=== PATIENT | male | born 1950 | race Caucasian/White ===

== ENCOUNTER 2021-10-02 14:49 | Inpatient (IN) ==
[2021-10-02] MEDS ORDERED: methylPREDNISolone 125 MG/2 ML VIAL IVP ONE (15:11)
[2021-10-02] MEDS ORDERED: 0.9 % Sodium Chloride 1,000 ML IVC ONE (15:11)
[2021-10-02] MEDS ORDERED: Ipratropium/Albuterol Neb 3 ML IH ONE (15:11)
[2021-10-02 15:57] LABS: Basophils % 0.2 %; Eosinophils % 0.1 %; Immature Granulocytes % 2.2 % (0-4); Red Cell Distribution Width 14.9 % (11.5-14.5); Segmented Neutrophils % 83.6 %
[2021-10-02 15:59] LABS: Hematocrit 38.9 % (37.5-50.1); Hemoglobin 12.2 g/dL (12.9-16.9); Immature Platelets 15.9 % (1.1-6.1); Lymphocytes # 0.7 K/mcL (0.6-4.6); Lymphocytes % 3.8 %; Mean Corpuscular HGB Conc 31.4 g/dL (31.6-35.5); Mean Corpuscular Hemoglobin 26.7 pg (28.0-33.3); Mean Corpuscular Volume 85.1 fL (83.0-100.0); Mean Platelet Volume 13.7 fL (9.4-12.4); Monocytes # 1.8 K/mcL (0.0-1.3); Monocytes % 10.1 %; Platelet Count 222 K/mcL (140-400); Red Blood Count 4.57 M/mcL (4.19-5.50)
[2021-10-02 16:05] LABS: INR 1.2; Neutrophils # 15.1 K/mcL (1.6-8.9); Prothrombin Time 13.9 Seconds (9.4-12.1)
[2021-10-02 16:08] LABS: Activated Partial Thrombo Time 32.5 Seconds (26.0-36.0)
[2021-10-02 16:12] LABS: ABG Base Excess -6 mEq/L (-2 to 3); ABG HCO3 18 mEq/L (21-27); ABG Oxygen Saturation 89 % (95-98); ABG PCO2 31 mmHg (35-45); ABG PH 7.38 pH Units (7.32-7.45); ABG PO2 57 mmHg (85-104); ABG TCO2 19 mEq/L (20-26)
[2021-10-02 16:21] LABS: Large Platelets Present (Not Present); Smudge Cells Present (Not Present)
[2021-10-02 16:24] LABS: Troponin I 0.04 ng/mL (< 0.04)
[2021-10-02 16:36] LABS: Albumin 3.7 g/dL (3.5-5.7); Albumin/Globulin Ratio 0.9 (1.1-2.2); Bilirubin,Direct 0.1 mg/dL (0.0-0.2); Bilirubin,Indirect 0.2 mg/dL (0.0-1.0); Bilirubin,Total 0.3 mg/dL (0.3-1.0); Calcium 9.1 mg/dL (8.6-10.3); Globulin 4.3 g/dL (2.4-3.5); Potassium 5.1 mEq/L (3.5-5.1)
[2021-10-02] MEDS ORDERED: cefTRIAXone 1,000 MG in 0.9 % Sodium Chloride Mini Bag 100 ML IVPB ONE (16:36)
[2021-10-02] MEDS ORDERED: *HR* Heparin 5,000 UNIT/ML VIAL IVP ONE (16:50)
[2021-10-02] MEDS ORDERED: *HR* Heparin 5,000 UNIT/ML VIAL IVP PRN ×2 (16:50)
[2021-10-02 17:27] LABS: Hematocrit 38.4 % (37.5-50.1); Mean Corpuscular HGB Conc 31.3 g/dL (31.6-35.5); Mean Corpuscular Hemoglobin 26.6 pg (28.0-33.3); Mean Corpuscular Volume 85.1 fL (83.0-100.0); Mean Platelet Volume 13.3 fL (9.4-12.4); Red Blood Count 4.51 M/mcL (4.19-5.50); Red Cell Distribution Width 14.9 % (11.5-14.5); White Blood Count 17.2 K/mcL (4.3-11.1)
[2021-10-02 17:34] LABS: INR 1.2; Prothrombin Time 13.9 Seconds (9.4-12.1)
[2021-10-02 17:36] LABS: Heparin anti-factor XA UFH < 0.04 IU/mL (0.30-0.70)
[2021-10-02] MEDS: Heparin 25,000UNIT/250ML 1/2NS 25,000 UNIT/250 ML IV.SOLN IVC SCH (18:08)
[2021-10-02] MEDS ORDERED: Naloxone 0.4 MG/ML INJ IVP PRN (18:47)
[2021-10-02] MEDS ORDERED: Melatonin 3 MG TABLET PO PRN (18:47)
[2021-10-02] MEDS: Ipratropium 1 PUFF INHALER IH SCH ×2 (19:41→20:02)
[2021-10-02] MEDS: Dexamethasone Sodium Phos/PF 10 MG/ML VIAL IVP SCH (19:45)
[2021-10-02 21:25] LABS: Adenovirus Not Detected (Not Detect); Coronavirus 229E Not Detected (Not Detect); Coronavirus HKU1 Not Detected (Not Detect); Coronavirus NL63 Not Detected (Not Detect); Coronavirus OC43 Not Detected (Not Detect)
[2021-10-02 21:26] LABS: Bordetella Pertussis Not Detected (Not Detect); Chlamydophila pneumoniae Not Detected (Not Detect); Human Metapneumovirus Not Detected (Not Detect); Human Rhinovirus/Enterovirus Not Detected (Not Detect); Influenza A Subtype 2009 H1 Not Detected (Not Detect); Influenza B Not Detected (Not Detect); Mycoplasma pneumoniae Not Detected (Not Detect); Parainfluenza Virus 1 Not Detected (Not Detect); Parainfluenza Virus 2 Not Detected (Not Detect); Parainfluenza Virus 3 Not Detected (Not Detect); Parainfluenza Virus 4 Not Detected (Not Detect); Respiratory Syncytial Virus Not Detected (Not Detect); SARS-CoV-2 DETECTED (Not Detect)
[2021-10-02 23:21] LABS: Amorphous Sediment,Urine Few per hpf (None-Few); Bilirubin,Urine Negative (Negative); Blood,Urine Trace (Negative); Clarity,Urine Turbid (Clear); Color,Urine Yellow (Yellow); Glucose,Urine (UA) Normal (Normal); Hyaline Casts,Urine Few per lpf (None Seen); Ketones,Urine Trace mg/dL (Negative); Leukocyte Esterase,Urine Negative (Negative); Mucus,Urine Few per lpf (None-Few); Nitrite,Urine Negative (Negative); PH,Urine 5.5 pH Units (5.0-8.0); Protein,Urine 70 mg/dL (Neg-Trace); RBC,Urine 0-3 per hpf (0-3); Specific Gravity,Urine 1.021 (1.010-1.025); Squamous Epithelial Cell,Urine Few per hpf (None-Few); Urobilinogen,Urine Normal (Normal); WBC,Urine 0-3 per hpf (0-3)
[2021-10-02 23:26] LABS: Hematocrit 35.1 % (37.5-50.1); Hemoglobin 11.2 g/dL (12.9-16.9); Mean Corpuscular HGB Conc 31.9 g/dL (31.6-35.5); Mean Corpuscular Hemoglobin 27.1 pg (28.0-33.3); Mean Corpuscular Volume 84.8 fL (83.0-100.0); Platelet Count 203 K/mcL (140-400); Red Blood Count 4.14 M/mcL (4.19-5.50); Red Cell Distribution Width 14.9 % (11.5-14.5); White Blood Count 13.8 K/mcL (4.3-11.1)
[2021-10-02 23:35] LABS: Heparin anti-factor XA UFH 0.91 IU/mL (0.30-0.70)
[2021-10-03 00:50] LABS: C-Reactive Protein > 300 mg/L (Less than 10); Troponin I 0.04 ng/mL (< 0.04)
[2021-10-03] MEDS: Ipratropium 1 PUFF INHALER IH SCH ×4 (04:00→20:27)
[2021-10-03 07:59] LABS: Red Cell Distribution Width 15.2 % (11.5-14.5)
[2021-10-03 08:02] LABS: Hematocrit 35.5 % (37.5-50.1); Hemoglobin 11.2 g/dL (12.9-16.9); Immature Platelets 16.7 % (1.1-6.1); Mean Corpuscular HGB Conc 31.5 g/dL (31.6-35.5); Mean Corpuscular Volume 85.5 fL (83.0-100.0); Mean Platelet Volume 13.3 fL (9.4-12.4); Platelet Count 235 K/mcL (140-400); Red Blood Count 4.15 M/mcL (4.19-5.50); White Blood Count 15.7 K/mcL (4.3-11.1)
[2021-10-03 09:24] LABS: Troponin I 0.03 ng/mL (< 0.04)
[2021-10-03] MEDS: Dexamethasone Sodium Phos/PF 10 MG/ML VIAL IVP SCH (09:39)
[2021-10-03 09:41] LABS: Hypochromasia Present (Not Present); Lymphocytes # 0.3 K/mcL (0.6-4.6); Monocytes # 1.6 K/mcL (0.0-1.3); Neutrophils # 13.8 K/mcL (1.6-8.9); Platelet Estimate Normal (Normal)
[2021-10-03] MEDS ORDERED: 0.9 % Sodium Chloride 1,000 ML IVC SCH (14:15)
[2021-10-03] MEDS: FLUoxetine 20 MG CAPSULE PO SCH (15:26)
[2021-10-03] MEDS: Heparin 25,000UNIT/250ML 1/2NS 25,000 UNIT/250 ML IV.SOLN IVC SCH (17:15)
[2021-10-04 01:52] LABS: Mean Corpuscular Volume 83.5 fL (83.0-100.0)
[2021-10-04 01:54] LABS: Basophils % 0.2 %; Hematocrit 33.4 % (37.5-50.1); Hemoglobin 10.6 g/dL (12.9-16.9); Immature Granulocytes % 1.6 % (0-4); Immature Platelets 14.8 % (1.1-6.1); Lymphocytes # 0.7 K/mcL (0.6-4.6); Lymphocytes % 4.8 %; Mean Corpuscular HGB Conc 31.7 g/dL (31.6-35.5); Mean Corpuscular Hemoglobin 26.5 pg (28.0-33.3); Mean Platelet Volume 13.3 fL (9.4-12.4); Monocytes # 1.5 K/mcL (0.0-1.3); Monocytes % 9.7 %; Neutrophils # 12.8 K/mcL (1.6-8.9); Platelet Count 226 K/mcL (140-400); Red Cell Distribution Width 14.8 % (11.5-14.5); Segmented Neutrophils % 83.7 %; White Blood Count 15.3 K/mcL (4.3-11.1)
[2021-10-04 02:04] LABS: Calcium 8.6 mg/dL (8.6-10.3); Potassium 4.7 mEq/L (3.5-5.1)
[2021-10-04] MEDS: Ipratropium 1 PUFF INHALER IH SCH ×4 (03:33→20:13)
[2021-10-04] MEDS: FLUoxetine 20 MG CAPSULE PO SCH (08:56)
[2021-10-04] MEDS: Dexamethasone Sodium Phos/PF 10 MG/ML VIAL IVP SCH (08:57)
[2021-10-04] MEDS: Acetaminophen 325 MG TABLET PO PRN (16:08)
[2021-10-04] MEDS: Azithromycin 500 MG in 0.9 % Sodium Chloride 250 ML IVPB SCH (20:47)
[2021-10-04] MEDS ORDERED: Melatonin 3 MG TABLET PO SCH (21:00)
[2021-10-05] MEDS: cefTRIAXone 1,000 MG in Water for inj. (sterile) 10 ML IVP SCH ×2 (00:30→09:27)
[2021-10-05 02:07] LABS: Hemoglobin 10.6 g/dL (12.9-16.9); Red Cell Distribution Width 14.7 % (11.5-14.5)
[2021-10-05 02:09] LABS: Basophils % 0.3 %; Hematocrit 32.3 % (37.5-50.1); Immature Granulocytes % 2.7 % (0-4); Immature Platelets 15.1 % (1.1-6.1); Lymphocytes # 0.4 K/mcL (0.6-4.6); Lymphocytes % 3.7 %; Mean Corpuscular HGB Conc 32.8 g/dL (31.6-35.5); Mean Corpuscular Hemoglobin 26.9 pg (28.0-33.3); Mean Platelet Volume 13.2 fL (9.4-12.4); Monocytes # 1.2 K/mcL (0.0-1.3); Monocytes % 10.2 %; Neutrophils # 9.5 K/mcL (1.6-8.9); Platelet Count 239 K/mcL (140-400); Red Blood Count 3.94 M/mcL (4.19-5.50); Segmented Neutrophils % 83.1 %; White Blood Count 11.4 K/mcL (4.3-11.1)
[2021-10-05 02:17] LABS: Fibrinogen 645 mg/dL (169-393)
[2021-10-05 02:20] LABS: D-Dimer 774 ng/mLFEU (0-500)
[2021-10-05 02:23] LABS: BUN/Creatinine Ratio 43 (6-26); Blood Urea Nitrogen 60 mg/dL (8-23); C-Reactive Protein 84 mg/L (Less than 10); Calcium 8.6 mg/dL (8.6-10.3); Carbon Dioxide 22 mEq/L (23-29); Chloride 110 mEq/L (98-107); Glucose 188 mg/dL (70-105); Osmolality,Calculated 316 (280-300); Potassium 4.8 mEq/L (3.5-5.1); Sodium 142 mEq/L (136-145); eGFR For African Americans > 60 (> 60); eGFR For Non-African Americans 51 (> 60)
[2021-10-05 02:43] LABS: Large Platelets Present (Not Present); Platelet Estimate Normal (Normal); Reactive Lymphocytes Present (Not Present)
[2021-10-05] MEDS: Ipratropium 1 PUFF INHALER IH SCH ×4 (04:18→20:08)
[2021-10-05] MEDS: Acetaminophen 325 MG TABLET PO PRN (09:24)
[2021-10-05] MEDS: FLUoxetine 20 MG CAPSULE PO SCH (09:26)
[2021-10-05] MEDS: amLODIPine 5 MG TABLET PO SCH (09:26)
[2021-10-05] MEDS: Dexamethasone Sodium Phos/PF 10 MG/ML VIAL IVP SCH (09:26)
[2021-10-05] MEDS: Ondansetron 4 MG/2 ML VIAL IVP PRN (09:37)
[2021-10-05] MEDS: Benzonatate 100 MG CAPSULE PO PRN (09:38)
[2021-10-05] MEDS: Heparin 25,000UNIT/250ML 1/2NS 25,000 UNIT/250 ML IV.SOLN IVC SCH (13:23)
[2021-10-05] MEDS: Azithromycin 500 MG in 0.9 % Sodium Chloride 250 ML IVPB SCH (19:00)
[2021-10-06 02:18] LABS: Basophils # 0.1 K/mcL (0.0-0.2); Basophils % 0.5 %; Immature Granulocytes % 4.2 % (0-4); Immature Platelets 15.5 % (1.1-6.1); Lymphocytes # 0.5 K/mcL (0.6-4.6); Mean Corpuscular HGB Conc 33.3 g/dL (31.6-35.5); Mean Corpuscular Hemoglobin 27.3 pg (28.0-33.3); Mean Corpuscular Volume 81.9 fL (83.0-100.0); Mean Platelet Volume 13.5 fL (9.4-12.4); Monocytes # 1.3 K/mcL (0.0-1.3); Monocytes % 12.6 %; Platelet Count 237 K/mcL (140-400); Red Blood Count 4.03 M/mcL (4.19-5.50); Red Cell Distribution Width 14.6 % (11.5-14.5); Segmented Neutrophils % 77.7 %; White Blood Count 10.1 K/mcL (4.3-11.1)
[2021-10-06 02:19] LABS: Neutrophils # 7.9 K/mcL (1.6-8.9)
[2021-10-06 02:34] LABS: BUN/Creatinine Ratio 33 (6-26); Blood Urea Nitrogen 43 mg/dL (8-23); Calcium 8.8 mg/dL (8.6-10.3); Carbon Dioxide 25 mEq/L (23-29); Chloride 109 mEq/L (98-107); Glucose 156 mg/dL (70-105); Osmolality,Calculated 308 (280-300); Potassium 4.7 mEq/L (3.5-5.1); Sodium 142 mEq/L (136-145); eGFR For African Americans > 60 (> 60); eGFR For Non-African Americans 54 (> 60)
[2021-10-06 02:41] LABS: Platelet Estimate Normal (Normal)
[2021-10-06] MEDS: Ipratropium 1 PUFF INHALER IH SCH ×4 (04:18→19:58)
[2021-10-06] MEDS: amLODIPine 5 MG TABLET PO SCH (09:15)
[2021-10-06] MEDS: Acetaminophen 325 MG TABLET PO PRN ×2 (09:16→17:59)
[2021-10-06] MEDS: Aspirin Enteric Coated 81 MG Tablet PO SCH (09:17)
[2021-10-06] MEDS: Dexamethasone Sodium Phos/PF 10 MG/ML VIAL IVP SCH (09:17)
[2021-10-06] MEDS: Ondansetron 4 MG/2 ML VIAL IVP PRN (09:17)
[2021-10-06] MEDS: Benzonatate 100 MG CAPSULE PO PRN ×2 (09:17→17:58)
[2021-10-06] MEDS: Cholecalciferol (D-3) 1,000 UNIT (25MCG) TABLET PO SCH (09:17)
[2021-10-06] MEDS: FLUoxetine 20 MG CAPSULE PO SCH (09:17)
[2021-10-06] MEDS: hydrOXYzine pamoate 25 MG CAPSULE PO PRN (09:17)
[2021-10-06] MEDS: lisinopriL 20 MG TABLET PO SCH (09:17)
[2021-10-06] MEDS: cefTRIAXone 1,000 MG in Water for inj. (sterile) 10 ML IVP SCH (09:18)
[2021-10-06 11:20] LABS: Protein/Creatinine Ratio,Urine 0.75 mg/mg (0.00-0.20)
[2021-10-06] MEDS: *HR* Heparin 5,000 UNIT/ML VIAL SQ SCH ×2 (11:25→17:58)
[2021-10-06] MEDS: Azithromycin 500 MG in 0.9 % Sodium Chloride 250 ML IVPB SCH (17:59)
[2021-10-07 02:33] LABS: Mean Corpuscular Volume 82.9 fL (83.0-100.0); Mean Platelet Volume 13.6 fL (9.4-12.4); Red Cell Distribution Width 14.6 % (11.5-14.5)
[2021-10-07 02:35] LABS: Basophils # 0.1 K/mcL (0.0-0.2); Basophils % 0.8 %; Hematocrit 34.4 % (37.5-50.1); Immature Platelets 15.3 % (1.1-6.1); Lymphocytes # 0.5 K/mcL (0.6-4.6); Lymphocytes % 7.5 %; Mean Corpuscular Hemoglobin 26.5 pg (28.0-33.3); Monocytes # 0.6 K/mcL (0.0-1.3); Monocytes % 8.7 %; Neutrophils # 5.6 K/mcL (1.6-8.9); Platelet Count 224 K/mcL (140-400); Red Blood Count 4.15 M/mcL (4.19-5.50); White Blood Count 7.2 K/mcL (4.3-11.1)
[2021-10-07 02:47] LABS: BUN/Creatinine Ratio 36 (6-26); Blood Urea Nitrogen 47 mg/dL (8-23); Calcium 8.9 mg/dL (8.6-10.3); Carbon Dioxide 25 mEq/L (23-29); Chloride 104 mEq/L (98-107); Glucose 184 mg/dL (70-105); Osmolality,Calculated 303 (280-300); Potassium 5.1 mEq/L (3.5-5.1); Sodium 138 mEq/L (136-145); eGFR For African Americans > 60 (> 60); eGFR For Non-African Americans 53 (> 60)
[2021-10-07 03:12] LABS: Large Platelets Present (Not Present); Platelet Estimate Normal (Normal)
[2021-10-07] MEDS: Ipratropium 1 PUFF INHALER IH SCH ×4 (04:00→23:42)
[2021-10-07] MEDS: *HR* Heparin 5,000 UNIT/ML VIAL SQ SCH ×3 (05:22→21:03)
[2021-10-07] MEDS: Aspirin Enteric Coated 81 MG Tablet PO SCH (09:31)
[2021-10-07] MEDS: Benzonatate 100 MG CAPSULE PO PRN (09:31)
[2021-10-07] MEDS: lisinopriL 20 MG TABLET PO SCH (09:31)
[2021-10-07] MEDS: amLODIPine 5 MG TABLET PO SCH (09:32)
[2021-10-07] MEDS: FLUoxetine 20 MG CAPSULE PO SCH (09:32)
[2021-10-07] MEDS: Cholecalciferol (D-3) 1,000 UNIT (25MCG) TABLET PO SCH (09:32)
[2021-10-07] MEDS: hydrOXYzine pamoate 25 MG CAPSULE PO PRN (09:32)
[2021-10-07] MEDS: Acetaminophen 325 MG TABLET PO PRN (09:32)
[2021-10-07] MEDS: cefTRIAXone 1,000 MG in Water for inj. (sterile) 10 ML IVP SCH (09:32)
[2021-10-07] MEDS: Dexamethasone Sodium Phos/PF 10 MG/ML VIAL IVP SCH (09:36)
[2021-10-07] MEDS: Azithromycin 500 MG in 0.9 % Sodium Chloride 250 ML IVPB SCH (19:07)
[2021-10-08] MEDS: Ipratropium 1 PUFF INHALER IH SCH ×4 (03:40→20:37)
[2021-10-08] MEDS: *HR* Heparin 5,000 UNIT/ML VIAL SQ SCH ×3 (05:08→21:50)
[2021-10-08] MEDS: Acetaminophen 325 MG TABLET PO PRN (10:40)
[2021-10-08] MEDS: hydrOXYzine pamoate 25 MG CAPSULE PO PRN (10:40)
[2021-10-08] MEDS: amLODIPine 5 MG TABLET PO SCH (10:40)
[2021-10-08] MEDS: FLUoxetine 20 MG CAPSULE PO SCH (10:40)
[2021-10-08] MEDS: Aspirin Enteric Coated 81 MG Tablet PO SCH (10:40)
[2021-10-08] MEDS: lisinopriL 20 MG TABLET PO SCH (10:40)
[2021-10-08] MEDS: Benzonatate 100 MG CAPSULE PO PRN (10:40)
[2021-10-08] MEDS: Dexamethasone Sodium Phos/PF 10 MG/ML VIAL IVP SCH (10:40)
[2021-10-08] MEDS: Cholecalciferol (D-3) 1,000 UNIT (25MCG) TABLET PO SCH (10:40)
[2021-10-08] MEDS: cefTRIAXone 1,000 MG in Water for inj. (sterile) 10 ML IVP SCH (10:41)
[2021-10-08] MEDS: Azithromycin 500 MG in 0.9 % Sodium Chloride 250 ML IVPB SCH (17:47)
[2021-10-09] MEDS: Ipratropium 1 PUFF INHALER IH SCH ×2 (03:47→07:53)
[2021-10-09] MEDS: *HR* Heparin 5,000 UNIT/ML VIAL SQ SCH ×2 (05:44→12:12)
[2021-10-09 07:37] VITALS: BP 141/59; PULSE 65; TEMP 98.3
[2021-10-09] MEDS: hydrOXYzine pamoate 25 MG CAPSULE PO PRN (09:50)
[2021-10-09] MEDS: Aspirin Enteric Coated 81 MG Tablet PO SCH (09:50)
[2021-10-09] MEDS: amLODIPine 5 MG TABLET PO SCH (09:50)
[2021-10-09] MEDS: Cholecalciferol (D-3) 1,000 UNIT (25MCG) TABLET PO SCH (09:51)
[2021-10-09] MEDS: Acetaminophen 325 MG TABLET PO PRN (09:51)
[2021-10-09] MEDS: Benzonatate 100 MG CAPSULE PO PRN (09:51)
[2021-10-09] MEDS: FLUoxetine 20 MG CAPSULE PO SCH (09:51)
[2021-10-09] MEDS: lisinopriL 20 MG TABLET PO SCH (09:51)
[2021-10-09 11:58] VITALS: O2SAT 96
== END 2021-10-09 16:08 | disposition home or self-care (01) | DRG 871 ==
LOC: EMEROOARM 14:49 → 2ANU 14:49 → SUATTDRO 17:51 → 2ANU 18:41
PROVIDERS: ADMIT Internal Medicine; ATTEND Internal Medicine